=== PATIENT | female | born 1960 | race Caucasian/White ===

== ENCOUNTER 2018-01-11 16:15 | Inpatient (IN) | payer MEDICARE, MEDICAID ==
[~2018-01-11] VITALS: Ht 165.1 cm; Wt 76.9 kg
--- NOTE | ~2018-01-11 | EKG ---
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
--- NOTE | ~2018-01-11 | CON ---
[place], [place] REPORT OF CONSULTATION NAME: GABRIELA SOTO UNIT #: [id number] ROOM: 421 DOCTOR: PHD JERICHO AMARIS BIRTHDATE: [birth year] DOS: 01/14/2018 HISTORY OF PRESENT ILLNESS: The patient is a 57-year-old female referred by the hospitalist with concerns for emotional lability. At the present time, the patient is on the 4th floor at [facility] and is receiving services through [facility] for her alcohol detox. Also alcohol in the Emergency Department was 134.0. The 7-year anniversary of her 's was yesterday. She has an estranged daughter who lives in [place]. She is unemployed and lives alone in housing provided through the [facility]. She also receives psychiatric counseling and case management services in [place] through [facility]. The patient identified depression and family conflict as a trigger for her drinking. She is a current smoker and denied illegal drug use. PAST MEDICAL HISTORY: Hypertension, alcohol abuse, tobacco abuse. MEDICATIONS: Protonix, Ativan, Glucophage, Zestril, Lovenox, folic acid, thiamine, Theragran, Desyrel, Vistaril, Bentyl, Robaxin, Zofran. The patient was lying comfortably in bed, in no apparent distress. She was awake, alert and oriented to person, place, and approximate time. Eye contact and social skills were fair. She was cooperative with the evaluation. Affect was labile and mood was depressed with the patient frequently crying throughout the evaluation. She denied suicidal ideation, plan, and intent, but stated that she is "not sure if she can go on like this in life" with respect to her drinking and level of depression and anxiety. She is worried that she will lose her housing and is depressed about losing her and her estrangement from her daughter due to the patient's alcohol use. She stated that she wants mental health treatment and would like to sign into the Behavioral Health Unit voluntarily. Speech was within normal limits with respect to rhythm, rate, volume and tone. Expressive and receptive language appeared within normal limits on a conversational basis. Thought process was goal directed. There were no apparent hallucinations or delusions. Insight and judgment appeared fair. DIAGNOSES: Alcohol withdrawal with perceptual disturbances, major depressive disorder, recurrent, severe anxiety disorder, unspecified tobacco use disorder. PLAN: Given the level of the patient's depression and anxiety, she appears to be an appropriate candidate for the Senior Behavioral Health Unit. She can be admitted to [facility] under Dr. Avalos on a voluntary basis once alcohol detox is complete and she is medically cleared. Thank you very much for this consult. [place], [place] REPORT OF CONSULTATION NAME: GABRIELA SOTO UNIT #: [id number] ROOM: 421 DOCTOR: JERICHO, PHD AMARIS BIRTHDATE: [birth year] Dimple Browning, PhD CM:CONSTR:REPORT OF CONSULTATION 1020 01/15/18 0253 interface
[2018-01-11 16:19] VITALS: BP 153/96
[2018-01-11 17:07] LABS: BASO # 0.1 10*3/uL (0.0-0.1); BASO % 0.7 % (0.0-1.0); EOS # 0.2 10*3/uL (0.0-0.4); EOS % 3.5 % (1.0-4.0); HEMATOCRIT 39.8 % (37.0-47.0); HEMOGLOBIN 13.7 g/dl (12.0-16.0); LYMPH # 2.6 10*3/uL (1.3-4.4); LYMPH % 38.7 % (27.0-41.0); MEAN CELL VOLUME 96.6 fl (81.0-99.0); MEAN CORPUSCULAR HGB 33.3 pg (27.0-31.0); MEAN CORPUSCULAR HGB CONC 34.4 g/dl (33.0-37.0); MEAN PLATELET VOLUME 9.8 fl (9.6-12.3); MONO # 0.6 10*3/uL (0.1-1.0); MONO % 8.7 % (3.0-9.0); NEUT # 3.3 10*3/uL (2.3-7.9); NEUT % 48.1 % (47.0-73.0); PLATELET COUNT AUTOMATED 213 10*3/uL (130-400); RED BLOOD COUNT 4.12 10*6/uL (4.10-5.10); RED CELL DISTRI WIDTH 13.6 % (0-14.5); WHITE BLOOD COUNT 6.8 10*3/uL (4.8-10.8)
[2018-01-11 17:13] LABS: BILIRUBIN NEGATIVE (NEGATIVE); BLOOD NEGATIVE (NEGATIVE); CLARITY SL CLOUDY (CLEAR); COLOR YELLOW (YELLOW); GLUCOSE NEGATIVE (NEGATIVE); KETONE NEGATIVE (NEGATIVE); LEUKO ESTERASE NEGATIVE (NEGATIVE); NITRITE NEGATIVE (NEGATIVE); UROBILINOGEN 0.2 E.U./dl (0.2-1.0)
[2018-01-11 17:18] LABS: BACTERIA 1+; RBC 0-2 rbc/hpf (0-2)
[2018-01-11 17:20] LABS: URINE AMPHETAMINES < 1000 (1000ng/ml); URINE BARBITURATES < 200 (200ng/ml); URINE BENZODIAZEPINES < 200 (200ng/ml); URINE CANNABINOIDS (THC) < 50 (50ng/ml); URINE COCAINE < 300 (300ng/ml); URINE METHADONE < 300 (300ng/ml); URINE OPIATES < 300 (300ng/ml)
[2018-01-11 17:21] LABS: URINE PHENCYCLIDINE < 25 (25ng/ml)
[2018-01-11 17:25] LABS: ALKALINE PHOSPHATASE 140 U/L (45-117); BUN 6 mg/dl (7-24); CHLORIDE 101 mmol/L (98-107); CREATININE 0.51 mg/dL (0.55-1.02); POTASSIUM 4.1 mmol/L (3.5-5.1); SGOT/AST 257 IU/L (3-35); SGPT/ALT 103 U/L (12-78); SODIUM 135 mmol/L (136-145); TOTAL PROTEIN 7.7 gm/dL (6.4-8.2)
[2018-01-11 17:26] LABS: ACETAMINOPHEN (TYLENOL) < 2.0 ug/ml (10-30); TROPONIN I < 0.015 ng/ml (<0.045)
[2018-01-11 18:04] VITALS: BP 162/113
[2018-01-11] MEDS ORDERED: ZESTRIL10 MG PO (18:44)
[2018-01-11] MEDS ORDERED: GLUCOPHAGE500 M1 PO (18:46)
[2018-01-11] MEDS ORDERED: PROTONIX40 MG PO (18:46)
[2018-01-11 20:00] VITALS: BP 123/90
[2018-01-11 20:07] LABS: INTERNATIONAL NORM RATIO 1.1 (2.0-3.5)
[2018-01-12 00:45] VITALS: BP 102/65
[2018-01-12 08:52] LABS: BASO % 1.3 % (0.0-1.0); EOS # 0.2 10*3/uL (0.0-0.4); EOS % 5.6 % (1.0-4.0); HEMOGLOBIN 11.8 g/dl (12.0-16.0); LYMPH # 1.5 10*3/uL (1.3-4.4); LYMPH % 47.9 % (27.0-41.0); MEAN CORPUSCULAR HGB 33.1 pg (27.0-31.0); MEAN CORPUSCULAR HGB CONC 33.7 g/dl (33.0-37.0); MEAN PLATELET VOLUME 9.9 fl (9.6-12.3); MONO # 0.3 10*3/uL (0.1-1.0); MONO % 10.9 % (3.0-9.0); NEUT % 34.3 % (47.0-73.0); PLATELET COUNT AUTOMATED 174 10*3/uL (130-400); RED BLOOD COUNT 3.57 10*6/uL (4.10-5.10); RED CELL DISTRI WIDTH 13.6 % (0-14.5)
[2018-01-12 09:08] LABS: ALBUMIN 3.1 gm/dl (3.1-4.5); ALKALINE PHOSPHATASE 107 U/L (45-117); BUN 5 mg/dl (7-24); CHLORIDE 108 mmol/L (98-107); CREATININE 0.54 mg/dL (0.55-1.02); SGOT/AST 58 IU/L (3-35); SGPT/ALT 62 U/L (12-78); SODIUM 141 mmol/L (136-145); TOTAL PROTEIN 6.2 gm/dL (6.4-8.2)
[2018-01-12 12:00] VITALS: BP 129/65
[2018-01-12 16:00] VITALS: BP 140/77
[2018-01-12 20:00] VITALS: BP 146/90
[2018-01-13] VITALS (7 sets, daily range): BP systolic 118–140; BP diastolic 85–98
[2018-01-13 06:39] LABS: BASO % 0.6 % (0.0-1.0); EOS # 0.2 10*3/uL (0.0-0.4); EOS % 4.8 % (1.0-4.0); HEMATOCRIT 35.3 % (37.0-47.0); HEMOGLOBIN 11.8 g/dl (12.0-16.0); LYMPH # 1.2 10*3/uL (1.3-4.4); LYMPH % 34.5 % (27.0-41.0); MEAN CELL VOLUME 99.4 fl (81.0-99.0); MEAN CORPUSCULAR HGB 33.2 pg (27.0-31.0); MEAN CORPUSCULAR HGB CONC 33.4 g/dl (33.0-37.0); MEAN PLATELET VOLUME 10.2 fl (9.6-12.3); MONO # 0.4 10*3/uL (0.1-1.0); MONO % 10.5 % (3.0-9.0); NEUT # 1.7 10*3/uL (2.3-7.9); NEUT % 49.6 % (47.0-73.0); PLATELET COUNT AUTOMATED 152 10*3/uL (130-400); RED BLOOD COUNT 3.55 10*6/uL (4.10-5.10); RED CELL DISTRI WIDTH 13.5 % (0-14.5); WHITE BLOOD COUNT 3.3 10*3/uL (4.8-10.8)
[2018-01-13 07:16] LABS: BUN 9 mg/dl (7-24); CHLORIDE 108 mmol/L (98-107); CREATININE 0.54 mg/dL (0.55-1.02); SODIUM 140 mmol/L (136-145)
[2018-01-14] VITALS: BP 142/102
[2018-01-14 05:47] VITALS: BP 124/80
[2018-01-14 08:00] VITALS: BP 130/85
[2018-01-14] MEDS ORDERED: Nicorette Gum4 MG PO (11:36)
[2018-01-14 12:00] VITALS: BP 140/86
== END 2018-01-14 14:15 | disposition home health service (06) | DRG 641 ==
LOC: ED 16:15 → EDHOLD 17:55 → 4E 17:55
PROVIDERS: Internal Medicine; Nurse Practitioner Family
DX: E87.1 Hypo-osmolality and hyponatremia (principal); F33.9 Major depressive disorder, recurrent, unspecified; F10.232 Alcohol dependence with withdrawal with perceptual disturbance; E83.51 Hypocalcemia; D64.9 Anemia, unspecified; D72.819 Decreased white blood cell count, unspecified; Y90.9 Presence of alcohol in blood, level not specified; R73.03 Prediabetes; I10 Essential (primary) hypertension; F41.9 Anxiety disorder, unspecified; Z90.710 Acquired absence of both cervix and uterus; Z90.49 Acquired absence of other specified parts of digestive tract; Z79.899 Other long term (current) drug therapy; Z85.89 Personal history of malignant neoplasm of other organs and systems; Z92.21 Personal history of antineoplastic chemotherapy; Z82.49 Family history of ischemic heart disease and other diseases of the circulatory system; Z71.6 Tobacco abuse counseling; Z72.0 Tobacco use

== ENCOUNTER 2018-01-14 12:20 | Inpatient (IN) | payer MEDICARE, MEDICAID ==
[~2018-01-14] VITALS: Ht 167.6 cm; Wt 73.5 kg
--- NOTE | ~2018-01-14 | PR ---
[place], [place] PROGRESS NOTE NAME: GABRIELA SOTO UNIT #: [id number] ROOM: 312 DOCTOR: MARILIN WRIGHT MD BIRTHDATE: [birth year] DOS: 01/19/2018 SUBJECTIVE: The patient seen and spoke with the staff. Per staff, the patient is doing better. No more outburst, med compliant, slept well last night. The patient was pleasant and cooperative. She was in the day area attending groups. She said that she is feeling better. She slept well and she feels that the medication is helping her. MENTAL STATUS EXAMINATION: Pleasant, cooperative. Described her mood as "better." Affect, mood congruent. Thought process goal directed. No flight of ideas, loosening of association. She denied auditory or visual hallucination. No delusion or paranoia noted. She denied suicidal ideation, intent or plan. She also denied homicidal ideation, intent or plan. PLAN: 1. Continue current medications and care. 2. Continue redirection. 3. Supportive care. MARILIN WRIGHT MD CM:PNTRANS [id number] MARILIN WRIGHT MD 01/20/18 0931 interface
--- NOTE | ~2018-01-14 | PR ---
[place], [place] PROGRESS NOTE NAME: GABRIELA SOTO UNIT #: [id number] ROOM: 312 DOCTOR: MARILIN WRIGHT MD BIRTHDATE: [birth year] DOS: 01/20/2018 PSYCHIATRIC PROGRESS NOTE Patient seen and I spoke with the staff. Per staff, patient is doing well. No behavioral problems or issues. Medication compliant. Patient was pleasant and cooperative. She was sitting in the day area, participating in the activities. She reports doing "better." Denied being depressed or sad. She said that the medication is helping her. She reports good sleep and appetite. MENTAL STATUS EXAMINATION: Pleasant and cooperative. Described her mood as "better." Affect was broad range. Thought process goal directed. No flight of ideas, loosening of association. She denied auditory or visual hallucination. No delusion or paranoia noted. She denied suicidal ideation, intent or plan. She also denied any homicidal ideation, intent or plan. PLAN: 1. Continue current medication and care. 2. Continue redirection. 3. Supportive care. MARILIN WRIGHT MD CM:PNTRANS 27 [phone] MARILIN WRIGHT MD 01/21/18125 interface
--- NOTE | ~2018-01-14 | PR ---
[place], [place] PROGRESS NOTE NAME: GABRIELA SOTO UNIT #: [id number] ROOM: 312 DOCTOR: SURINDER HERRERA MD BIRTHDATE: [birth year] DOS: 01/16/2018 CHIEF COMPLAINT: "I kind of lost it yesterday, I was thinking about losing my mother and it just made me so sad." SUMMARY OF THE VISIT: The patient was interviewed in the dining area as she sat finishing her breakfast and watching television. She engaged readily in conversation. She continues to complain of both depression and anxiety. However, she did report that the Seroquel that was increased yesterday did seem to help somewhat. She also complains of severe constipation to the point of being physically uncomfortable, so uncomfortable that it interfered with her sleep last night. This despite receiving multiple doses of Chronulac. MENTAL STATUS: She is alert and oriented. Mood does seem to be still depressed, but trending towards euthymia. Affect is more appropriate. There is no eugenie or hypomania. There are no gross psychotic symptoms. There are still overriding anxiety. Memory has some gaps, but otherwise she is intact. PLAN: I will order a Fleet's enema to see if we can get her moving physically and order Rozerem p.r.n. for sleep. We will continue her other psychotropics, continue to engage in individual and israel milieu activity, returning to the least restrictive environment when psychiatrically stable. SURINDER HERRERA MD CM:PNTRANS [id number] SURINDER HERRERA MD 01/17/18 0106 interface
--- NOTE | ~2018-01-14 | PR ---
[place], [place] PROGRESS NOTE NAME: GABRIELA SOTO UNIT #: [id number] ROOM: 312 DOCTOR: SURINDER HERRERA MD BIRTHDATE: [birth year] DOS: 01/17/2018 CHIEF COMPLAINT: "Oh, I just lost it yesterday afternoon, I have a tendency to snap like that." SUMMARY OF THE VISIT: The patient was interviewed as she sat in the dining area. She had engaged in conversation readily. She reports that yesterday she was having a fairly decent day when she became very agitated because the nurse would not give her prune juice. Rather than rationally talking it out, she stated she lost her temper and became very rude and irritable and directed her renan against the nurse. She states that this has been an ongoing problem with her and that her mood lability has often gotten her into trouble. She reports that she is tolerating the current medication regimen well and is open to me adjusting her medicines further. MENTAL STATUS: She is alert and oriented to person, place and time. Mood does seem to be very labile still, but trending toward improvement. There is no eugenie, hypomania or psychosis. Short term, intermediate and long-term memories are intact. PLAN: I will increase her Seroquel from 50 mg 3 times a day to 100 mg 3 times a day and change the timing of her Klonopin from b.i.d. to 10:00 a.m. and 2:00 p.m., engage in individual and israel milieu activity, returning to the least restrictive environment when psychiatrically stable. SURINDER HERRERA MD CM:PNTRANS [id number] SURINDER HERRERA MD 01/18/18 0119 interface
--- NOTE | ~2018-01-14 | WRIGHTHP ---
[place], [place] PATIENT HISTORY AND PHYSICAL EXAM NAME: [id number] UNIT #: [id number] ROOM: 312 DOCTOR: SURINDER HERRERA MD BIRTHDATE: [birth year] DOS: 01/15/2018 INITIAL PSYCHIATRIC EVALUATION CHIEF COMPLAINT: "I have just been so depressed and anxious. I can't go on like this." HISTORY OF PRESENT ILLNESS: This is a 57-year-old white female who was initially admitted to [facility] for alcohol detoxification. The patient reports that she has been drinking 1-2/5 of Booker [place] daily and has been doing so for many, many years. The patient has not gone for any type of detox until now and states that she realizes she must do so to prevent herself from dying. She relates the drinking to ongoing depression that has also been going on for years, worse in the last several weeks prior to this admission. 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 The patient reports fleeting suicidal thoughts as well. She is admitted now to rule out any organic factors, to engage in individual and israel milieu activity and to treat her underlying depression and anxiety. PAST MEDICAL HISTORY: Remarkable for endometrial cancer with hysterectomy, GERD, hypertension, colonic polyps, normocytic anemia, prediabetes and being overweight. SOCIAL HISTORY: The patient endorses drinking 1-2/5 of [place] daily. She uses no illicit drugs. She is a cigarette smoker. ALLERGIES: She lists no allergies. STRENGTHS: Good verbal skills, ambulatory, willingness to get help. WEAKNESSES: Chronic mental health issues with substance abuse, poor coping skills. MENTAL STATUS: She is alert and oriented. She broke down crying throughout the interview and endorses significant depression and anxiety. The anxiety is free floating and is there constantly. The depression has worsened of late. She endorses multiple neurovegetative symptoms. Mood is overwhelmingly depressed. Affect is flat, blunted, and constricted. There is no eugenie, hypomania or psychosis. Memory is fully intact. DIAGNOSES: Major depression, recurrent, severe; anxiety disorder, not otherwise specified; alcohol dependence; nicotine dependence and hyperammonemia. PLAN: I have already started her on Remeron 15 mg at bedtime. Her serum ammonia level is elevated at 84 and the hospitalists have ordered Chronulac 20 grams q. 2 hours. Vitamin D level is subtherapeutic at 19.9. I will order vitamin D 5000 International Units daily. To treat her anxiety, I will use [place], [place] PATIENT HISTORY AND PHYSICAL EXAM NAME: GABRIELA SOTO UNIT #: [id number] ROOM: [facility] DOCTOR: SURINDER HERRERA MD BIRTHDATE: [birth year] Klonopin 1 mg b.i.d. and augment with Seroquel 25 mg t.i.d. I will also augment with multivitamins with minerals to improve her nutritional status. I did discuss with her the possibility of starting her on Campral or Vivitrol a drug that would help with the alcohol cravings. At this point, she declined that use, but will think about it. We will engage in individual and israel milieu activity, returning to the least restrictive environment when psychiatrically stable. SURINDER HERRERA MD CM:HISPHYS:PATIENT HISTORY AND PHYSICAL EXAMINATION [id number] SURINDER HERRERA MD 01/15/18 1117 interface
--- NOTE | ~2018-01-14 | DS ---
[place], [place] DISCHARGE SUMMARY NAME: GABRIELA SOTO [facility] [id number] UNIT #: [id number] ROOM: 312 DOCTOR: SURINDER HERRERA MD BIRTHDATE: [birth year] DOS: 01/21/2018 CHIEF COMPLAINT: "I have just been so depressed and anxious I can't go on like this." HISTORY OF PRESENT ILLNESS: This is a 57-year-old white female who was initially admitted to [facility] in [facility] for alcohol detoxification. The patient reports drinking 1-2 fifth of Booker [place] daily and has been doing so for many years, she has gone to multiple types of detox, but states she realized that she is actively attempting to kill herself by drinking and will do so if she does not get help. 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 She has had a significant weight loss as well. She is admitted now to rule out any organic factors to attempt to stabilize on medication, to return to the least restrictive environment. SUMMARY OF HOSPITAL COURSE: The patient was admitted to the unit where her ammonia level was elevated at 84. So she was started on Chronulac, vitamin D level was subtherapeutic at 19.9, so vitamin D 5000 international units daily was added. She was started on Remeron as an antidepressant of choice to improve sleep and appetite. Additionally, later as the time went on, her overriding anxiety became very evident. Klonopin was started at 1 mg b.i.d. per her report, she had been on this in the past and did well on it. This was augmented at first with Seroquel 25 mg t.i.d., which was rapidly titrated upwards to its maximum dose of 100 mg q.i.d. with excellent results. The patient found that with the Seroquel on board it augmented the effectiveness of the Remeron and the Klonopin it kept her anxiety in check, it kept her mood more stable. Sleep and appetite normalized and she voiced positive plans for the future. I did discuss with her the possibility of starting Campral and Vivitrol, but she did not feel that she actually had alcohol craving. Instead, she linked to most of her alcohol as self-medication for anxiety and depression. She did feel that if these were adequately treated she would not be drinking. The patient had improved sufficiently by January 21 to go back to [facility] where she had further treatment in the past. She was discharged then on January 21 to [place]. MENTAL STATUS AT DISCHARGE: The patient is alert and oriented to person, place and time. Mood does seem to be strongly trending towards euthymia. Affect is much more appropriate. There is no eugenie, hypomania or suicidal thoughts, homicidal thoughts, or self-injurious thoughts. Memory for the most part is intact. FINAL DIAGNOSES: Major depression, recurrent, severe; anxiety disorder, not otherwise specified; alcohol dependence, nicotine dependence. DISPOSITION: The patient's prescriptions for a 1-week supply of Klonopin was written. The rest of her prescriptions were e-scribed to [facility]. She will have further followup at [facility]. [place], [place] DISCHARGE SUMMARY NAME: GABRIELA SOTO [facility] #: [id number] UNIT #: [id number] ROOM: 312 DOCTOR: SURINDER HERRERA MD BIRTHDATE: [birth year] SURINDER HERRERA MD CM:SHAUN [id number] SURINDER HERRERA MD 01/21/18 1040 interface
[~2018-01-14 12:20] MED LIST: GLUCOPHAGE500 M1 PO; Nicorette Gum4 MG PO; PROTONIX40 MG PO; ZESTRIL10 MG PO
[2018-01-14 14:18] VITALS: BP 126/80
[2018-01-14 20:33] VITALS: BP 125/86
[2018-01-15 07:01] LABS: BASO % 0.8 % (0.0-1.0); EOS # 0.2 10*3/uL (0.0-0.4); EOS % 3.7 % (1.0-4.0); HEMATOCRIT 35.9 % (37.0-47.0); HEMOGLOBIN 12.2 g/dl (12.0-16.0); LYMPH # 1.7 10*3/uL (1.3-4.4); LYMPH % 32.7 % (27.0-41.0); MEAN CELL VOLUME 98.1 fl (81.0-99.0); MEAN CORPUSCULAR HGB 33.3 pg (27.0-31.0); MEAN PLATELET VOLUME 10.2 fl (9.6-12.3); MONO # 0.6 10*3/uL (0.1-1.0); MONO % 11.3 % (3.0-9.0); NEUT # 2.7 10*3/uL (2.3-7.9); NEUT % 51.1 % (47.0-73.0); PLATELET COUNT AUTOMATED 167 10*3/uL (130-400); RED BLOOD COUNT 3.66 10*6/uL (4.10-5.10); RED CELL DISTRI WIDTH 13.5 % (0-14.5); WHITE BLOOD COUNT 5.2 10*3/uL (4.8-10.8)
[2018-01-15 07:08] LABS: ALBUMIN 3.2 gm/dl (3.1-4.5); ALKALINE PHOSPHATASE 93 U/L (45-117); BUN 8 mg/dl (7-24); CHLORIDE 109 mmol/L (98-107); CHOLESTEROL 172 mg/dL (<200); CREATININE 0.36 mg/dL (0.55-1.02); HDL CHOLESTEROL 103 mg/dl (40-60); LDL CHOLESTEROL 58 mg/dL (9-159); POTASSIUM 3.8 mmol/L (3.5-5.1); SGOT/AST 19 IU/L (3-35); SGPT/ALT 35 U/L (12-78); SODIUM 142 mmol/L (136-145); TOTAL PROTEIN 6.7 gm/dL (6.4-8.2); TRIGLYCERIDES 54 mg/dl (<150); VLDL CHOLESTEROL 11 mg/dL (6-40)
[2018-01-15 08:18] VITALS: BP 132/93
[2018-01-15 09:22] LABS: VITAMIN D, 25-HYDROXY 19.9 ng/mL (30-100)
[2018-01-15 20:29] VITALS: BP 100/77
[2018-01-16 09:33] VITALS: BP 120/80
[2018-01-16 14:17] VITALS: BP 121/85
[2018-01-17 07:43] VITALS: BP 124/86
[2018-01-17 20:07] VITALS: BP 112/90
[2018-01-18 07:13] VITALS: BP 119/70
[2018-01-18 19:56] VITALS: BP 100/58
[2018-01-19 07:59] VITALS: BP 111/83
[2018-01-19 19:39] VITALS: BP 109/73
[2018-01-20 07:50] VITALS: BP 123/84
[2018-01-20 19:38] VITALS: BP 108/65
[2018-01-21 07:13] VITALS: BP 128/85
[2018-01-21] MEDS ORDERED: QUETIAPINE FUM100 M3 PO (09:00)
[2018-01-21] MEDS ORDERED: LACTULOSE20 GM/30 M PO (09:00)
[2018-01-21] MEDS ORDERED: MIRTAZAPINE15 M2 PO (09:00)
[2018-01-21] MEDS ORDERED: CLONAZEPAM1 MG PO ×2 (09:00)
== END 2018-01-21 14:10 | DRG 885 ==
LOC: 3N 12:20
PROVIDERS: Psychiatry & Neurology Psychiatry
DX: F33.2 Major depressive disorder, recurrent severe without psychotic features (principal); L02.91 Cutaneous abscess, unspecified; E72.20 Disorder of urea cycle metabolism, unspecified; Z68.26 Body mass index [BMI] 26.0-26.9, adult; F41.9 Anxiety disorder, unspecified; F10.20 Alcohol dependence, uncomplicated; K21.9 Gastro-esophageal reflux disease without esophagitis; E66.3 Overweight; E55.9 Vitamin D deficiency, unspecified; R73.03 Prediabetes; D64.9 Anemia, unspecified; I10 Essential (primary) hypertension; F17.210 Nicotine dependence, cigarettes, uncomplicated; Z85.89 Personal history of malignant neoplasm of other organs and systems; Z90.710 Acquired absence of both cervix and uterus; Z92.21 Personal history of antineoplastic chemotherapy; Z90.49 Acquired absence of other specified parts of digestive tract; Z82.49 Family history of ischemic heart disease and other diseases of the circulatory system; Z79.84 Long term (current) use of oral hypoglycemic drugs